=== PATIENT | female | born 1975 | race American Indian/Alaskan Native ===

== ENCOUNTER 2017-05-13 08:46 | Emergency (ER) | payer OTHER ==
[2017-05-13 09:17] LABS: Basophils % (Auto) 0.3 % (0.0-1.8); Eosinophils % (Auto) 3.1 % (0.0-4.3); Hematocrit 40.7 % (30.3-42.9); Hemoglobin 13.3 gm/dl (10.1-14.3); Mean Corpuscular HGB Conc 33 % (30-34); Mean Corpuscular Hemoglobin 27 pg (28-32); Mean Corpuscular Volume 83 fl (79-97); Platelet Count 259 K/mm3 (140-440); Red Blood Count 4.89 M/mm3 (3.65-5.03); Red Cell Distribution Width 15.1 % (13.2-15.2); White Blood Count 12.7 K/mm3 (4.5-11.0)
[2017-05-13 09:56] LABS: Bacteria,Urine 3+ /HPF (Negative); Bilirubin,Urine NEG (Negative); Blood,Urine SM (Negative); Ketones,Urine NEG (Negative); Leukocyte Esterase,Urine SM (Negative); Mucus,Urine 1+ /HPF; Nitrite,Urine NEG (Negative); Protein,Urine <15 mg/dL mg/dL (Negative); Urobilinogen,Urine < 2.0 mg/dL (<2.0)
[2017-05-13 11:07] LABS: Alanine Aminotransferase 11 units/L (7-56); Albumin 3.8 g/dL (3.9-5); Albumin/Globulin Ratio 0.9 %; Alkaline Phosphatase 58 units/L (35-129); Anion Gap 20 mmol/L; Blood Urea Nitrogen 6 mg/dL (7-17); Calcium 9.2 mg/dL (8.4-10.2); Carbon Dioxide 22 mmol/L (22-30); Chloride 97.7 mmol/L (98-107); Glucose 95 mg/dL (65-100); Lipase 47 units/L (13-60); Sodium 136 mmol/L (137-145); Total Protein 7.9 g/dL (6.3-8.2)
--- NOTE | 2017-05-13 14:30 | Emergency Department Report ---
Entered by ALICE MCKEON, acting as scribe for JADEN FLAHERTY NP. Chief Complaint: Abdominal Pain Stated Complaint: LOW ABDOMINAL PAIN/16WKS PREG/HEADACHE Time Seen by Provider: 05/13/17 14:24 - HPI History of Present Illness: 41 y/o female presents with abd pain that started last night. Sx include decrease in pain after urination and sinus "pressure". Pt found out she was in late February of 2017. Pt denies seeing an SURVEILLANCE SYSTEMS ANALYST during . - ROS Review of Systems: +abd pain +sinus "pressure" - Exam Vital Signs: Vital Signs 05/13/17 08:52 Temperature 98.5 F Pulse Rate 93 H Respiratory 16 Rate Blood Pressure 134/89 O2 Sat by Pulse 99 Oximetry Physical Exam: abd: soft LLQ TTP, MSE screening note: Focused history and physical exam performed. Due to findings the following was ordered: labs and us ED Medical Decision Making - Lab Data Result diagrams: 05/13/17 09:05 05/13/17 09:05 ED Disposition for MSE Condition: Stable Instructions: Abdominal Pain (ED) Referrals: PRIMARY CARE,MD [Primary Care Provider] - 3-5 Days This documentation as recorded by the sulemaibMIKE priest RYAN,accurately reflects the service I personally performed and the decisions made by KRYSTINA otero TRACY M , BOARD WINDER.
--- NOTE | 2017-05-13 15:31 | Ultrasound Report ---
OB ULTRASOUND GREATER THAN 14 WEEKS - TRANSABDOMINAL AND TRANSVAGINAL INDICATION: Pelvic pain, 16 weeks . COMPARISON: None similar at this institution. TECHNIQUE: Transabdominal grayscale ultrasound with Doppler interrogation. Transvaginal cervical assessment also performed. Gestation: Ham Position: Transverse - head maternal right Amniotic Fluid: WNL (less than 24 weeks, subjective) Placenta: Fundal Placental Grade: 0 Heart Rate: 152 BPM Cervical length: 5.6 cm (Normal > 3 cm) It is too early for a anatomical survey BPD: 3.8 cm = 17 w 5 d HC: 14.6 cm = 17 w 6 d AC: 12 cm = 17 w 5 d FL: 2.4 cm = 17 w 4 d HC/AC Ratio: 1.22 Cephalic Index: 84 Estimated Weight: 204 grams LMP: Uncertain US Gest. Age = 17 w and 5 d EDC: 10/16/2017 CONCLUSION: Single, viable intrauterine gestation with ultrasound estimated age of 17 weeks and 5 days and EDC of 10/16/2017, currently in transverse lie with details, as above. Thank you for the opportunity to participate in this patient's care.
[2017-05-13] MEDS ORDERED: MACROBID PO ONE (17:20)
[2017-05-13] MEDS ORDERED: TYLENOL PO ONE (17:20)
--- NOTE | 2017-05-13 17:23 | Emergency Department Report ---
ED HPI - General Chief complaint: Abdominal Pain Stated complaint: LOW ABDOMINAL PAIN/16WKS PREG/HEADACHE Time Seen by Provider: 05/13/17 14:24 Source: patient, RN notes reviewed Mode of arrival: Ambulatory Limitations: No Limitations - History of Present Illness Initial comments: This 41-year-old female. She is previously unknown to me. She is 5, para 4. Cannot recall when her last menstrual period is. Patient presents to the ER complaining of left lower quadrant pain since yesterday. The pain is achy. It increases with palpation, decreases with rest, and urination. Patient also complains of sinus pressure, and congestion. There is no severe headache, neck pain, chest pain, shortness of breath, fever, irritative urinary symptoms or right lower quadrant pain. There is no vaginal bleeding. She reports no history of care. She is defecating normally. She is passing gas normally. MD Complaint: abdominal pain -: Gradual Radiation: LLQ Severity: mild Quality: cramping, aching Consistency: intermittent Improves with: urination, rest Worsens with: none Associated symptoms: denies: nausea/vomiting, vaginal discharge, abdominal pain , dysuria, vision changes, malaise, dysparuenia, rash, seizure, shortness of breath, syncope, weakness Vaginal bleeding: none :: Yes - Related Data Previous Rx's Medication Instructions Recorded Last Taken Type Doxylamine/Pyridoxine HCl 1 each PO QHS PRN #30 tablet. 05/13/17 Unknown Rx [Diclerussel Mahmood 10-10 mg Tablet] Nitrofurantoin [place]/M-Cryst 100 mg PO Q12HR #13 capsule 05/13/17 Unknown Rx [Macrobid CAP] Vit W-Ca,Fe,FA(<1 mg) 1 each PO QDAY #30 tablet 05/13/17 Unknown Rx [ Vitamins] Allergies Allergy/AdvReac Type Severity Reaction Status Date / Time No Known Allergies Allergy Verified 05/13/17 08:57 ED Review of Systems ROS: Stated complaint: LOW ABDOMINAL PAIN/16WKS PREG/HEADACHE Other details as noted in HPI Constitutional: denies: fever, malaise Eyes: denies: vision change ENT: congestion Respiratory: denies: cough, wheezing Cardiovascular: denies: chest pain Gastrointestinal: denies: nausea, vomiting Genitourinary: denies: urgency, dysuria Musculoskeletal: denies: back pain Skin: denies: lesions Neurological: headache. denies: weakness ED Past Medical Hx - Past Medical History Previous Medical History?: No - Surgical History Past Surgical History?: No - Social History Smoking Status: Never Smoker Substance Use Type: None - Medications Home Medications: Home Medications Medication Instructions Recorded Confirmed Last Taken Type Doxylamine/Pyridoxine HCl 1 each PO QHS PRN #30 tablet.dr 05/13/17 Unknown Rx [Diclegis Dr 10-10 mg Tablet] Nitrofurantoin [place]/M-Cryst 100 mg PO Q12HR #13 capsule 05/13/17 Unknown Rx [Macrobid CAP] Vit W-Ca,Fe,FA(<1 mg) 1 each PO QDAY #30 tablet 05/13/17 Unknown Rx [ Vitamins] ED Physical Exam - General Limitations: No Limitations General appearance: alert, in no apparent distress - Head Head exam: Present: atraumatic, normocephalic - Eye Eye exam: Present: normal appearance, EOMI. Absent: nystagmus - ENT ENT exam: Present: normal exam, normal orophraynx, mucous membranes moist, normal external ear exam - Neck Neck exam: Present: normal inspection, full ROM. Absent: tenderness, meningismus - Respiratory Respiratory exam: Present: normal lung sounds bilaterally. Absent: respiratory distress, wheezes, rales, rhonchi, stridor, chest wall tenderness, accessory muscle use, decreased breath sounds, prolonged expiratory - Cardiovascular Cardiovascular Exam: Present: regular rate, normal rhythm, normal heart sounds. Absent: bradycardia, tachycardia, irregular rhythm, systolic murmur, diastolic murmur, rubs, gallop - GI/Abdominal GI/Abdominal exam: Present: soft, normal bowel sounds, hernia (there is an easily reducible umbilical hernia.). Absent: distended, tenderness, guarding, rebound, rigid - Extremities Exam Extremities exam: Present: normal inspection, full ROM, normal capillary refill. Absent: tenderness, pedal edema, joint swelling, calf tenderness - Back Exam Back exam: Present: normal inspection, full ROM. Absent: tenderness, CVA tenderness (R), CVA tenderness (L), muscle spasm, paraspinal tenderness, vertebral tenderness - Neurological Exam Neurological exam: Present: alert, oriented X3, normal gait, other (Extraocular movements intact. Tongue midline. No facial droop. Facial sensation intact to light touch in the V1, V2, V3 distribution bilaterally. 5 and 5 strength in 4 extremities.. Sensation is intact to light touch in 4 extremities.). Absent : motor sensory deficit - Psychiatric Psychiatric exam: Present: normal affect, normal mood - Skin Skin exam: Present: warm, dry, intact, normal color. Absent: rash ED Course Vital Signs 05/13/17 05/13/17 05/13/17 08:52 17:46 17:47 Temperature 98.5 F 98.4 F Pulse Rate 93 H 97 H Respiratory 16 20 20 Rate Blood Pressure 134/89 Blood Pressure 134/83 [Left] O2 Sat by Pulse 99 97 97 Oximetry ED Medical Decision Making - Lab Data Result diagrams: 05/13/17 09:05 05/13/17 09:05 Vital Signs 05/13/17 05/13/17 05/13/17 08:52 17:46 17:47 Temperature 98.5 F 98.4 F Pulse Rate 93 H 97 H Respiratory 16 20 20 Rate Blood Pressure 134/89 Blood Pressure 134/83 [Left] O2 Sat by Pulse 99 97 97 Oximetry Lab Results 05/13/17 05/13/17 05/13/17 Range/Units 09:05 09:05 09:05 WBC 12.7 H (4.5-11.0) K/mm3 RBC 4.89 (3.65-5.03) M/mm3 Hgb 13.3 (10.1-14.3) gm/dl Hct 40.7 (30.3-42.9) % MCV 83 (79-97) fl MCH 27 L (28-32) pg MCHC 33 (30-34) % RDW 15.1 (13.2-15.2) % Plt Count 259 (140-440) K/mm3 Lymph % (Auto) 19.8 (13.4-35.0) % [place] % (Auto) 4.8 (0.0-7.3) % Eos % (Auto) 3.1 (0.0-4.3) % Baso % (Auto) 0.3 (0.0-1.8) % Lymph # 2.5 (1.2-5.4) K/mm3 [place] # 0.6 (0.0-0.8) K/mm3 Eos # 0.4 (0.0-0.4) K/mm3 Baso # 0.0 (0.0-0.1) K/mm3 Seg Neutrophils % 72.0 H (40.0-70.0) % Seg Neutrophils # 9.2 H (1.8-7.7) K/mm3 Sodium 136 L (137-145) mmol/L Potassium 4.0 (3.6-5.0) mmol/L Chloride 97.7 L (98-107) mmol/L Carbon Dioxide 22 (22-30) mmol/L Anion Gap 20 mmol/L BUN 6 L (7-17) mg/dL Creatinine 0.4 L (0.7-1.2) mg/dL Estimated GFR > 60 ml/min BUN/Creatinine Ratio 15.00 % Glucose 95 (65-100) mg/dL Calcium 9.2 (8.4-10.2) mg/dL Total Bilirubin 0.30 (0.1-1.2) mg/dL AST 8 (5-40) units/L ALT 11 (7-56) units/L Alkaline Phosphatase 58 (35-129) units/L Total Protein 7.9 (6.3-8.2) g/dL Albumin 3.8 L (3.9-5) g/dL Albumin/Globulin Ratio 0.9 % Lipase 47 (13-60) units/L HCG, Qual (Negative) HCG, Quant (0-4) mIU/mL Urine Color Yellow (Yellow) Urine Turbidity Clear (Clear) Urine pH 6.0 (5.0-7.0) Ur Specific [place] 1.018 (1.003-1.030) Urine Protein <15 mg/dl (Negative) mg/dL Urine Glucose (UA) Neg (Negative) mg/dL Urine Ketones Neg (Negative) mg/dL Urine Blood Sm (Negative) Urine Nitrite Neg (Negative) Urine Bilirubin Neg (Negative) Urine Urobilinogen < 2.0 (<2.0) mg/dL Ur Leukocyte Esterase Sm (Negative) Urine WBC (Auto) 6.0 (0.0-6.0) /HPF Urine RBC (Auto) 3.0 (0.0-6.0) /HPF U Epithel Cells (Auto) 7.0 (0-13.0) /HPF Urine Bacteria (Auto) 3+ (Negative) /HPF Urine Mucus 1+ /HPF Blood Type Ord Rhogam Gestat Weeks WEEKS 05/13/17 05/13/17 05/13/17 Range/Units 09:05 14:33 14:33 WBC (4.5-11.0) K/mm3 RBC (3.65-5.03) M/mm3 Hgb (10.1-14.3) gm/dl Hct (30.3-42.9) % MCV (79-97) fl MCH (28-32) pg MCHC (30-34) % RDW (13.2-15.2) % Plt Count (140-440) K/mm3 Lymph % (Auto) (13.4-35.0) % [place] % (Auto) (0.0-7.3) % Eos % (Auto) (0.0-4.3) % Baso % (Auto) (0.0-1.8) % Lymph # (1.2-5.4) K/mm3 [place] # (0.0-0.8) K/mm3 Eos # (0.0-0.4) K/mm3 Baso # (0.0-0.1) K/mm3 Seg Neutrophils % (40.0-70.0) % Seg Neutrophils # (1.8-7.7) K/mm3 Sodium (137-145) mmol/L Potassium (3.6-5.0) mmol/L Chloride (98-107) mmol/L Carbon Dioxide (22-30) mmol/L Anion Gap mmol/L BUN (7-17) mg/dL Creatinine (0.7-1.2) mg/dL Estimated GFR ml/min BUN/Creatinine Ratio % Glucose (65-100) mg/dL Calcium (8.4-10.2) mg/dL Total Bilirubin (0.1-1.2) mg/dL AST (5-40) units/L ALT (7-56) units/L Alkaline Phosphatase (35-129) units/L Total Protein (6.3-8.2) g/dL Albumin (3.9-5) g/dL Albumin/Globulin Ratio % Lipase (13-60) units/L HCG, Qual Positive (Negative) HCG, Quant 13001 H (0-4) mIU/mL Urine Color (Yellow) Urine Turbidity (Clear) Urine pH (5.0-7.0) Ur Specific [place] (1.003-1.030) Urine Protein (Negative) mg/dL Urine Glucose (UA) (Negative) mg/dL Urine Ketones (Negative) mg/dL Urine Blood (Negative) Urine Nitrite (Negative) Urine Bilirubin (Negative) Urine Urobilinogen (<2.0) mg/dL Ur Leukocyte Esterase (Negative) Urine WBC (Auto) (0.0-6.0) /HPF Urine RBC (Auto) (0.0-6.0) /HPF U Epithel Cells (Auto) (0-13.0) /HPF Urine Bacteria (Auto) (Negative) /HPF Urine Mucus /HPF Blood Type O POSITIVE Ord Rhogam Gestat Weeks Rh pos WEEKS - Radiology Data Radiology results: report reviewed, image reviewed Obstetrics ultrasound demonstrates insured , 17 weeks 5 days, transverse lie, no obvious bleed, age appropriate heartbeat - Medical Decision Making Differential diagnosis: Migraine headache, tension headache, cluster headache, mild sinusitis, , urinary tract infection, constipation Assessment and plan: 41-year-old female with nonspecific left lower quadrant pain. There is no right lower quadrant pain. She is afebrile, with reassuring vital signs, with no abdominal tenderness, rebound, guarding or peritoneal signs. She does endorse some urinary symptoms and that she feels like she has urinary frequency, and the urinalysis suggests bacteria. Ultrasound demonstrated no acute disease, the patient is able to tolerate liquid feeds, and her history and physical examination do not corroborate venous sinus thrombosis. Patient will be started on vitamins and nausea medication, she is instructed to initiate care and to follow up as soon as possible. the patient will be discharged at this time. Return precautions are reviewed. Critical care attestation.: If time is entered above; I have spent that time in minutes in the direct care of this critically ill patient, excluding procedure time. ED Disposition Clinical Impression: Disposition: [id number] TO HOME OR SELFCARE Is pt being admited?: No Does the pt Need Aspirin: No Condition: Stable Instructions: (ED) Additional Instructions: Take the antibiotics, nausea medication, vitamins as directed. Follow up as soon as possible with an outpatient [facility] doctor to initiate care. Please note that ultrasound demonstrated that you are 17 weeks , and with an age of 41 the patient is considered advanced maternal age and therefore high risk . Not following up as soon as possible with outpatient [facility] CONSULTANT may result in disability, defects, and loss of quality of life to both the mother and the patient's. Take acetaminophen, 650 mg, every 4-6 hours as needed for headache and pain. Return to the ER right away with new pain, worsened pain, migration of pain, fevers, chills, confusion, intractable nausea or vomiting, inability to tolerate liquid feeds. Prescriptions: Doxylamine/Pyridoxine HCl [Rosalie Mahmood 10-10 mg Tablet] 1 each PO QHS PRN #30 tablet. PRN Reason: Nausea Nitrofurantoin [place]/M-Cryst [Macrobid CAP] 100 mg PO Q12HR #13 capsule Vit W-Ca,Fe,FA(<1 mg) [ Vitamins] 1 each PO QDAY #30 tablet Referrals: PRIMARY CARE, [Primary Care Provider] - 3-5 Days [facility] [Provider Group] - 3-5 Days [facility] [Provider Group] - 3-5 Days [facility] [Provider Group] - 3-5 Days
[2017-05-13 17:47] VITALS: BP 134/83
== END 2017-05-13 17:51 | disposition home or self-care (01) ==
LOC: ED 08:46
DX: O26.892 Other specified pregnancy related conditions, second trimester (principal); R10.32 Left lower quadrant pain; Z3A.17 17 weeks gestation of pregnancy
CPT/HCPCS: 36415; 76805; 76817; 80053; 81001; 83690; 84702; 84703; 85025; 86900; 86901; 87086; 99284

== ENCOUNTER 2017-06-25 23:27 | Outpatient (CLI) | payer SELFPAY ==
[2017-06-26] VITALS: BP 122/79
[2017-06-26] MEDS ORDERED: LACTATED RINGERS 1,000 ML IV ONE (00:11)
[2017-06-26 00:36] LABS: Bacteria,Urine 1+ /HPF (Negative); Bilirubin,Urine NEG (Negative); Blood,Urine NEG (Negative); Ketones,Urine NEG (Negative); Leukocyte Esterase,Urine NEG (Negative); Nitrite,Urine NEG (Negative); Protein,Urine <15 mg/dL mg/dL (Negative); Urobilinogen,Urine < 2.0 mg/dL (<2.0); WBC,Urine < 1.0 /HPF (0.0-6.0)
== END 2017-06-26 01:10 | disposition home or self-care (01) ==
LOC: TRG 23:27
PROVIDERS: ATTEND Obstetrics & Gynecology
DX: O47.02 False labor before 37 completed weeks of gestation, second trimester (principal); Z3A.24 24 weeks gestation of pregnancy
CPT/HCPCS: 81001

== ENCOUNTER 2017-10-18 18:18 | Outpatient (CLI) | payer OTHER ==
[2017-10-18 19:10] VITALS: BP 125/74
--- NOTE | 2017-10-18 20:15 | Ultrasound Report ---
FINAL REPORT PROCEDURE: US OB LIMITED TECHNIQUE: Real-time limited sonographic examination was performed for evaluation of amniotic fluid volume and position for each fetus with image documentation (1 or more fetuses). CPT 14969 HISTORY: CHANDU COMPARISON: No prior studies are available for comparison. FINDINGS: There is a single fetus in a vertex presentation. heart activity is identified at a rate of 135 beats per minute. A 4 quadrant amniotic fluid volume measurement is 11 centimeters. IMPRESSION: There is a single fetus in a vertex presentation. Four quadrant amniotic fluid volume measurement is 11 centimeters.
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
== END 2017-10-18 21:35 | disposition home or self-care (01) ==
LOC: TRG 18:18
PROVIDERS: ATTEND Obstetrics & Gynecology
DX: O09.523 Supervision of elderly multigravida, third trimester (principal); O47.1 False labor at or after 37 completed weeks of gestation; Z3A.39 39 weeks gestation of pregnancy
CPT/HCPCS: 59025; 76815; 76819

== ENCOUNTER 2019-06-02 18:37 | Emergency (ER) | payer OTHER ==
[2019-06-02] MEDS ORDERED: IBUPROFEN PO ONE ×2 (18:45→18:49)
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
[2019-06-02 18:46] VITALS: BP 140/82
--- NOTE | 2019-06-02 19:41 | XRay Report ---
CERVICAL SPINE 3 VIEWS INDICATION / CLINICAL INFORMATION: neck pain. COMPARISON: None available. FINDINGS: VERTEBRAE: No acute fracture. No significant malalignment. DISC SPACES / FACET JOINTS:No significant abnormality. PARASPINAL SOFT TISSUES:No significant abnormality. ADDITIONAL FINDINGS: None. Signer Name: Lincoln Mccullough MD Signed: 06/02/2019 7:36 PM Workstation Name: [id number]
[2019-06-02] MEDS ORDERED: ZANAFLEX PO ONE (20:49)
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
== END 2019-06-02 21:59 | disposition home or self-care (01) ==
LOC: ED 18:37
DX: S16.1XXA Strain of muscle, fascia and tendon at neck level, initial encounter (principal); Z79.1 Long term (current) use of non-steroidal anti-inflammatories (NSAID); Z79.899 Other long term (current) drug therapy; V89.2XXA Person injured in unspecified motor-vehicle accident, traffic, initial encounter; Y93.89 Activity, other specified; Y92.488 Other paved roadways as the place of occurrence of the external cause; Y99.8 Other external cause status
CPT/HCPCS: 72040; 99283